=== PATIENT | female | born 1980 | race Caucasian/White ===

== ENCOUNTER 2022-06-13 06:06 | Day surgery (SDC) | payer OTHER ==
[2022-06-13] MEDS ORDERED: Lactated Ringers 1,000 ML IV SCH (06:30)
[2022-06-13] MEDS ORDERED: Versed 2 MG/2 ML Injection ONE (06:32)
[2022-06-13] MEDS ORDERED: DIPRIVAN 200 MG/20 ML IV ONE ×2 (06:32→08:20)
[2022-06-13 08:01] LABS: HCG SERUM TEST NEGATIVE (NEGATIVE)
[2022-06-13] MEDS ORDERED: Xylocaine-Mpf 2% 5 Ml Vial ONE (08:01)
[2022-06-13] MEDS ORDERED: Lactated Ringers 1,000 ML IV ONE (08:22)
[2022-06-13 09:15] VITALS: BP 109/71; PULSE 58; O2SAT 100
--- NOTE | 2022-06-13 10:32 | OP ---
SURGERY DATE/TIME: 06/13/2022 0806 PREOPERATIVE DIAGNOSES: 1) Screening colonoscopy. 2) Family history of colon cancer. POSTOPERATIVE DIAGNOSIS: Sigmoid colon polyp. PROCEDURE: Colonoscopy. SURGEON: Baudilio Michelle M.D. ANESTHESIA: MAC by Kailash Heath CRNA. ESTIMATED BLOOD LOSS: Minimal. SPECIMENS: Hot forceps polypectomy from sigmoid colon. DESCRIPTION OF PROCEDURE: After informed written consent was obtained, the patient was taken to the endoscopy suite. Anesthesia was titrated to desired level of consciousness. Digital rectal exam showed normal sphincter tone and no internal lesions. The scope was inserted into the rectum and sequentially the entire colonic mucosa was traversed. The level of cecum was reached and verified with direct visualization of the ileocecal valve. Upon withdrawal careful mucosal inspection revealed no mucosal abnormalities. Proximal sigmoid colon was reached. There was a small sessile polyp grasped with forceps, cauterized and removed in its entirety in piecemeal fashion. There was good hemostasis with removal of the lesion following the procedure. The remainder of the exam was unremarkable with no obvious mucosal abnormalities. The scope was removed. The patient was transferred to the recovery room in good condition. She will follow up in a week for pathology result.
== END 2022-06-13 09:30 | disposition home or self-care (01) ==
LOC: SDC 06:06
PROVIDERS: ATTEND Family Medicine
DX: Z12.11 Encounter for screening for malignant neoplasm of colon (principal); Z80.0 Family history of malignant neoplasm of digestive organs; D12.5 Benign neoplasm of sigmoid colon
CPT/HCPCS: 36415; 84703; J2250; J2704